=== PATIENT | male | born 1960 | race Caucasian/White ===

== ENCOUNTER 2021-12-25 15:14 | Day surgery (SDC) | payer OTHER ==
[2021-12-25] MEDS ORDERED: Cyclopentolate 1% Opth Drop 2 ML BOT ONE (15:42)
[2021-12-25] MEDS ORDERED: Phenylephrine 2.5% Ophth Soln 5 ML BOT ONE (15:42)
[2021-12-25] MEDS ORDERED: Fluorouracil 100 MG, Enoxaparin Sodium 25 MG, EPINEPHrine 0.3 MG in Ophthalmic Irrigati... IRR SCH (16:00)
[2021-12-25] MEDS ORDERED: fentaNYL PF 100 MCG/2 ML SYRINGE ONE (19:39)
[2021-12-25] MEDS ORDERED: Midazolam HCl 2 mg/2 ml Vial ONE (19:39)
[2021-12-25] MEDS ORDERED: PROPOFOL 200 MG/20 ML VIAL ONE (19:48)
[2021-12-25] MEDS ORDERED: Bupivacaine 0.75% 10 ML VIAL ONE (19:48)
[2021-12-25] MEDS ORDERED: Enoxaparin Sodium 30 MG/0.3 ML SYRINGE ONE (19:48)
[2021-12-25] MEDS ORDERED: Lidocaine 1% PF 5 ML VIAL ONE (19:48)
[2021-12-25] MEDS ORDERED: Maxitrol 0.1% Opth Oint 3.5 GM TUBE ONE (19:48)
[2021-12-25] MEDS ORDERED: Lidocaine 2% PF 5 ML VIAL ONE (19:48)
[2021-12-25] MEDS ORDERED: CEFAZOLIN 1 GM VIAL ONE (19:48)
[2021-12-25] MEDS ORDERED: Triamcinolone 40 MG/ML VIAL ONE (19:48)
[2021-12-25] MEDS ORDERED: Midazolam HCl 5 mg/5 ml Vial ONE (20:07)
== END 2021-12-25 21:58 | disposition home or self-care (01) ==
LOC: SDC 15:14
PROVIDERS: ATTEND Ophthalmology Retina Specialist
PROC: 08T53ZZ Resection of Left Vitreous, Percutaneous Approach (ICD-10-PCS; principal; 2021-12-25)
DX: H33.022 Retinal detachment with multiple breaks, left eye (principal)
CPT/HCPCS: J0690; J1650; J2001; J2250; J2704; J3301; J3490